=== PATIENT | male | born 1965 | race Caucasian/White ===

== ENCOUNTER → 2020-09-22 | Outpatient (CLI) | payer MEDICARE, OTHER ==
--- NOTE | 2020-09-22 13:07 | RAD ---
US DPLX VENOUS EXTREMITY LOWER RT History: Reason: Right Leg pain and swelling / Spl. Instructions: / History: Comparison: None. Discussion: Multiple longitudinal and transverse high resolution real-time images of the venous system of right l ower extremity were obtained with color and Doppler sampling. The common femoral, superficial femoral , popliteal and proximal calf veins are all patent and demonstrate normal flow and compressibility. N ormal respiratory phasicity and augmentation is present. Right inguinal prominent lymph node measures 2.3 x 0.7 cm. Impression: 1. No evidence of deep vein thrombosis. Electronically signed by: Fabian Melvin DO (09/22/2020 1:05 PM) [id number]
== END ==
LOC: US 11:06
PROVIDERS: ATTEND Family Medicine
DX: M79.661 Pain in right lower leg (principal); M79.89 Other specified soft tissue disorders
CPT/HCPCS: 93971